=== PATIENT | female | born 1960 | race Caucasian/White ===

== ENCOUNTER 2017-04-28 10:29 | Emergency (ER) | payer BC ==
[~2017-04-28] VITALS: Ht 165.1 cm; Wt 88.0 kg
[2017-04-28 10:32] VITALS: BP 224/102; PULSE 102; RESP 18; TEMP 98.5
[2017-04-28 10:44] VITALS: BP 177/102; PULSE 98; RESP 12; O2SAT 96
[2017-04-28] MEDS ORDERED: SODIUM CHLOR 0.9% 1000 ML INJ 1,000 ML IV SCH (10:59)
[2017-04-28] MEDS ORDERED: SODIUM CHLORIDE 0.9% FLUSH 10 ML FLUSH IV FLUSH PRN (11:00)
[2017-04-28] MEDS ORDERED: LORazepam 2 MG/ML VIAL IV PUSH ONE (11:00)
--- NOTE | 2017-04-28 11:01 | PD ---
HPI Chief Complaint: Abnormal Results Time Seen by Provider: 10:40 Travel History International Travel<30 days: No Contact w/Intl Traveler<30days: No Traveled to known affect area: No History of Present Illness HPI patient is a 56-year-old female presents emergency department for evaluation of mild alcohol withdrawal. The patient states she normally drinks a pint of vodka per day. She states that her and her recently came back from vacation and she started drinking a lot less because it was time to cut down. The patient is alert and awake and able to provide her own history. She denies any fevers, focalized weakness, altered mental status nor fever. denies any episodes of altered mental status. PFSH Past Medical History Medical other: Yes (ETOH ABUSE) Influenza Vaccination: No ?: Not Past Surgical History Surgical History: No Previous Surgery Hysterectomy: Yes Social History Alcohol Use: Yes (LAST DRINK VODKA 0900 TODAY) Tobacco Use: No Substance Use: No Allergies-Medications (Allergen,Severity, Reaction): Coded Allergies: Penicillins (Verified Allergy, Severe, Rash, 04/28/17) Reported Meds & Prescriptions Reported Meds & Active Scripts Active Chlordiazepoxide HCl 25 Mg Capsule 25 Mg PO DIRECTED take 50mg PO TID on day 1-3, then 25mg PO TID on day 4-5, then 25mg PO BID on day 6-7, then PO daily on day 8-10. Review of Systems Except as stated in HPI: all other systems reviewed are Neg Physical Exam Narrative GENERAL: WD/WN quite pleasant female in nad. Obese. SKIN: Warm and dry. HEAD: Atraumatic. Normocephalic. EYES: Pupils equal and round. No scleral icterus. No injection or drainage. ENT: No nasal bleeding or discharge. Mucous membranes pink and moist. NECK: Trachea midline. No JVD. CARDIOVASCULAR: Regular rate and rhythm. RESPIRATORY: No accessory muscle use. Clear to auscultation. Breath sounds equal bilaterally. GASTROINTESTINAL: Abdomen soft, non-tender, nondistended. Hepatic and splenic margins not palpable. MUSCULOSKELETAL: Extremities without clubbing, cyanosis, or edema. No obvious deformities. NEUROLOGICAL: Awake and alert. No obvious cranial nerve deficits. Motor grossly within normal limits. Five out of 5 muscle strength in the arms and legs. Normal speech. Minimal tremor with outstretched fingers. oriented x 4. Appropriate behavior. PSYCHIATRIC: Appropriate mood and affect; insight and judgment normal. Data Data Last Documented VS Vital Signs Date Time Temp Pulse Resp B/P (MAP) Pulse Ox O2 Delivery O2 Flow Rate FiO2 04/28/17 12:18 04/28/17 11:47 95 18 98 Room Air 04/28/17 10:32 98.5 Orders Orders Complete Blood Count With Diff (04/28/17 10:59) Comprehensive Metabolic Panel (04/28/17 10:59) Prothrombin Time / Inr (Pt) (04/28/17 10:59) Act Partial Throm Time (Ptt) (04/28/17 10:59) Iv Access Insert/Monitor (04/28/17 10:59) Ecg Monitoring (04/28/17 10:59) Oximetry (04/28/17 10:59) Sodium Chlor 0.9% 1000 Ml Inj (Ns 1000 M (04/28/17 10:59) Sodium Chloride 0.9% Flush (Ns Flush) (04/28/17 11:00) Lorazepam Inj (Ativan Inj) (04/28/17 11:00) Labs Laboratory Tests Test 04/28/17 11:10 White Blood Count 5.4 TH/MM3 Red Blood Count 5.03 MIL/MM3 Hemoglobin 15.3 GM/DL Hematocrit 46.1 % Mean Corpuscular Volume 91.6 FL Mean Corpuscular Hemoglobin 30.5 PG Mean Corpuscular Hemoglobin Concent 33.3 % Red Cell Distribution Width 12.8 % Platelet Count 163 TH/MM3 Mean Platelet Volume 8.4 FL Neutrophils (%) (Auto) 69.6 % Lymphocytes (%) (Auto) 19.4 % Monocytes (%) (Auto) 9.1 % Eosinophils (%) (Auto) 0.9 % Basophils (%) (Auto) 1.0 % Neutrophils # (Auto) 3.8 TH/MM3 Lymphocytes # (Auto) 1.0 TH/MM3 Monocytes # (Auto) 0.5 TH/MM3 Eosinophils # (Auto) 0.0 TH/MM3 Basophils # (Auto) 0.1 TH/MM3 CBC Comment DIFF FINAL Differential Comment Prothrombin Time 11.4 SEC Prothromb Time International Ratio 1.0 RATIO Activated Partial Thromboplast Time 25.9 SEC Blood Urea Nitrogen 4 MG/DL Creatinine 0.35 MG/DL Random Glucose 88 MG/DL Total Protein 7.5 GM/DL Albumin 3.6 GM/DL Calcium Level 8.3 MG/DL Alkaline Phosphatase 113 U/L Aspartate Amino Transf (AST/SGOT) 301 U/L Alanine Aminotransferase (ALT/SGPT) 208 U/L Total Bilirubin 1.1 MG/DL Sodium Level 138 MEQ/L Potassium Level 3.5 MEQ/L Chloride Level 102 MEQ/L Carbon Dioxide Level 24.0 MEQ/L Anion Gap 12 MEQ/L Estimat Glomerular Filtration Rate 193 ML/MIN MDM Medical Decision Making Medical Screen Exam Complete: Yes Emergency Medical Condition: Yes Differential Diagnosis Mild alcohol withdrawal, liver failure unlikely, cirrhosis. Narrative Course Patient roomed in the ED, appears well and in nad. Symptoms consistent with only a mild withdrawal. Labs show normal coags, bilirubin, protein levels. Elevation in AST and ALT. Discussed follow up with [facility]. After extensive counseling i believe this patient is at the point where she is ready to change. Librium taper written. Discussed with her and her return to ED criteria. Also discussed consider to go to AA meetings. She is stable for discharge. Diagnosis Primary Impression: Alcohol withdrawal Qualified Codes: F10.230 - Alcohol dependence with withdrawal, uncomplicated Additional Impression: Alcoholism /alcohol abuse Referrals: [facility] Pt SpecificInfo: Prescription(s) given Scripts Chlordiazepoxide HCl (Chlordiazepoxide HCl) 25 Mg Capsule 25 MG PO DIRECTED, #31 TAB 0 Refills take 50mg PO TID on day 1-3, then 25mg PO TID on day 4-5, then 25mg PO BID on day 6-7, then PO daily on day 8-10. Prov: Dutch Vu MD 04/28/17 Disposition: 01 DISCHARGE HOME Condition: Stable Dutch Vu MD Apr 28, 2017 11:01
[2017-04-28 11:15] LABS: AUTOMATED NEUTROPHIL # 3.8 TH/MM3 (1.8-7.7); BASOPHIL # 0.1 TH/MM3 (0-0.2); EOSINOPHIL % 0.9 % (0.0-4.0); HEMATOCRIT 46.1 % (35.0-46.0); HEMO FLAGS DIFF FINAL; LYMPH % 19.4 % (9.0-44.0); MEAN CELL VOLUME 91.6 FL (80.0-100.0); MEAN CORPUSCULAR HEMOGLOBIN 30.5 PG (27.0-34.0); MEAN CORPUSCULAR HGB CONC 33.3 % (32.0-36.0); MONO % 9.1 % (0.0-8.0); NEUT % 69.6 % (16.0-70.0); PLATELET COUNT 163 TH/MM3 (150-450); RED BLOOD COUNT 5.03 MIL/MM3 (4.00-5.30); RED CELL DISTRIBUTION WIDTH 12.8 % (11.6-17.2); WHITE BLOOD COUNT 5.4 TH/MM3 (4.0-11.0)
[2017-04-28 11:16] VITALS: O2SAT 98
[2017-04-28 11:23] LABS: CHLORIDE 102 MEQ/L (98-107); POTASSIUM 3.5 MEQ/L (3.5-5.1); SODIUM (NA) 138 MEQ/L (136-145)
[2017-04-28 11:27] LABS: ANION GAP 12 MEQ/L (5-15); APTT (PATIENT) 25.9 SEC (24.3-30.1); BLOOD UREA NITROGEN 4 MG/DL (7-18); PROTHROMBIN TIME - PATIENT 11.4 SEC (9.8-11.6)
[2017-04-28 11:30] LABS: ALT (GPT) 208 U/L (10-53); AST (GOT) 301 U/L (15-37); GLOMERULAR FILTRATION RATE 193 ML/MIN (>89)
[2017-04-28 11:32] LABS: TOTAL BILIRUBIN ADULT 1.1 MG/DL (0.2-1.0)
[2017-04-28 11:33] LABS: ALKALINE PHOSPHATASE 113 U/L (45-117)
[2017-04-28 11:47] VITALS: BP 143/75; PULSE 95; RESP 18; O2SAT 98
[2017-04-28] MEDS ORDERED: CHLO25CA9 PO (12:11)
== END 2017-04-28 12:18 | disposition home or self-care (01) ==
LOC: PHED 10:29
DX: F10.230 Alcohol dependence with withdrawal, uncomplicated (principal)
CPT/HCPCS: 80053; 85025; 85610; 85730; 96361; 96374; 99284; J2060; J7030